=== PATIENT | female | born 1985 | race Caucasian/White ===

== ENCOUNTER 2019-07-26 12:39 | Emergency (ER) | payer MEDICARE, MEDICAID ==
[~2019-07-26] VITALS: Ht 157.5 cm; Wt 52.0 kg
[~2019-07-26 12:39] MED LIST: SYN0.025T PO
[2019-07-26 13:14] VITALS: BP 134/94
[2019-07-26] MEDS ORDERED: IBUP-1984 PO (14:39)
[2019-07-26] MEDS ORDERED: PENI500T2 PO (14:39)
== END 2019-07-26 14:50 | disposition home or self-care (01) ==
LOC: ER 12:39
DX: K04.7 Periapical abscess without sinus (principal); K02.9 Dental caries, unspecified; F17.200 Nicotine dependence, unspecified, uncomplicated; F12.90 Cannabis use, unspecified, uncomplicated; F15.90 Other stimulant use, unspecified, uncomplicated; Z79.899 Other long term (current) drug therapy
CPT/HCPCS: 99283

== ENCOUNTER 2019-08-25 10:21 | Emergency (ER) | payer MEDICARE, MEDICAID ==
[~2019-08-25] VITALS: Ht 157.5 cm; Wt 53.0 kg
[2019-08-25 10:24] VITALS: BP 135/87
--- NOTE | 2019-08-25 11:04 | NUR ---
pt moved to fast track bed
[2019-08-25] MEDS ORDERED: penicillin V potassium 500mg tablet PO ONE (11:50)
[2019-08-25] MEDS ORDERED: HYDROcodone/acetaminophen 10/325mg tab PO ONE (11:50)
[2019-08-25] MEDS ORDERED: IBUP-1985 PO (12:15)
[2019-08-25] MEDS ORDERED: PENI500T2 PO (12:15)
== END 2019-08-25 12:22 | disposition home or self-care (01) ==
LOC: ER 10:22
DX: K04.7 Periapical abscess without sinus (principal); F12.90 Cannabis use, unspecified, uncomplicated; F15.90 Other stimulant use, unspecified, uncomplicated; Z79.899 Other long term (current) drug therapy
CPT/HCPCS: 99283

== ENCOUNTER 2019-10-28 06:43 | Emergency (ER) | payer MEDICARE, MEDICAID ==
[~2019-10-28] VITALS: Ht 157.5 cm; Wt 54.0 kg
[~2019-10-28 06:43] MED LIST changes: +IBUP-1985 PO
[2019-10-28 07:24] VITALS: BP 150/101
[2019-10-28] MEDS ORDERED: ketorolac trometh. 30mg/ml inj. IM ONE (07:35)
[2019-10-28] MEDS ORDERED: HYDROcodone/acetaminophen 10/325mg tab PO ONE (07:50)
--- NOTE | 2019-10-28 08:15 | NUR ---
AT 0815 STATUS SHOWS TX AND DC BUT PROVIDER ADVISES NOT TO DC PT YET.
== END 2019-10-28 09:25 | disposition home or self-care (01) ==
LOC: ER 06:43
DX: M25.512 Pain in left shoulder (principal); F12.90 Cannabis use, unspecified, uncomplicated; F15.90 Other stimulant use, unspecified, uncomplicated; Z79.899 Other long term (current) drug therapy
CPT/HCPCS: 29105; 71045; 73030; 96372; 99284; J1885

== ENCOUNTER 2021-03-15 14:02 | Emergency (ER) | payer MEDICARE, MEDICAID ==
[~2021-03-15] VITALS: Ht 157.5 cm; Wt 58.8 kg
[2021-03-15 15:06] LABS: CLARITY,URINE SLIGHTLY CLOUDY (Clear); COLOR,URINE YELLOW (Yellow); GLUCOSE, URINE NEGATIVE (Neg); KETONES,URINE NEGATIVE (Neg); LEUKOCYTE ESTERASE ,URINE NEGATIVE (Neg); NITRITES, URINE POSITIVE (Neg); OCCULT BLOOD,URINE NEGATIVE (Neg); PROTEIN,URINE NEGATIVE (Neg); UROBILINOGEN,URINE 0.2 E.U/dL (0.2-1.0)
[2021-03-15 15:09] LABS: URINE HCG POSITIVE (NEG)
[2021-03-15 15:15] LABS: UA COLLECTION TYPE CLN CATCH MIDSTREAM
[2021-03-15 15:16] LABS: BACTERIA,URINE 3+ /HPF (Neg); MUCUS STRANDS MODERATE /LPF (Neg); RBC,URINE NONE SEEN /HPF (0-2); SQUAMOUS EPITHELIAL CELL,UR MANY /LPF (FEW); WBC,URINE 0-4 /HPF (0-4)
[2021-03-15 15:59] VITALS: BP 130/74
--- NOTE | 2021-03-15 15:59 | NUR ---
awaiting ed MD.
--- NOTE | 2021-03-15 15:59 | NUR ---
patient received in room 2.call light within reach,fiance at bedside.
--- NOTE | 2021-03-15 16:10 | NUR ---
Dr. freeman at bedside for ultrasound.
[2021-03-15] MEDS ORDERED: CEPH-585 PO (16:28)
== END 2021-03-15 16:34 | disposition home or self-care (01) ==
LOC: ER 14:02
DX: O26.891 Other specified pregnancy related conditions, first trimester (principal); R10.31 Right lower quadrant pain; R82.71 Bacteriuria; O99.321 Drug use complicating pregnancy, first trimester; F12.90 Cannabis use, unspecified, uncomplicated; F15.90 Other stimulant use, unspecified, uncomplicated; Z90.49 Acquired absence of other specified parts of digestive tract; Z3A.13 13 weeks gestation of pregnancy; Z79.2 Long term (current) use of antibiotics; Z79.899 Other long term (current) drug therapy
CPT/HCPCS: 76815; 81001; 81025; 99284

== ENCOUNTER 2021-04-28 20:37 | Emergency (ER) | payer BC, MEDICAID, MEDICARE ==
[~2021-04-28] VITALS: Ht 157.5 cm; Wt 65.0 kg
[~2021-04-28 20:37] MED LIST changes: +CEPH-585 PO
[2021-04-28 23:02] VITALS: BP 111/74
== END 2021-04-28 23:03 | disposition home or self-care (01) ==
LOC: ER 20:38
DX: O26.892 Other specified pregnancy related conditions, second trimester (principal); M94.0 Chondrocostal junction syndrome [Tietze]; R12 Heartburn; F12.90 Cannabis use, unspecified, uncomplicated; F15.90 Other stimulant use, unspecified, uncomplicated; Z79.2 Long term (current) use of antibiotics; Z79.899 Other long term (current) drug therapy; Z3A.20 20 weeks gestation of pregnancy
CPT/HCPCS: 71046; 93005; 99283

== ENCOUNTER 2024-06-05 00:58 | Emergency (ER) | payer BC, MEDICAID ==
[~2024-06-05] VITALS: Ht 157.5 cm; Wt 52.3 kg
[~2024-06-05 00:58] MED LIST changes: -CEPH-585 PO
[2024-06-05 01:06] VITALS: TEMP 98.9
[2024-06-05 03:10] VITALS: BP 141/95; PULSE 107; RESP 16; O2SAT 99
== END 2024-06-05 03:15 | disposition home or self-care (01) ==
LOC: ER 00:59
DX: S70.12XA Contusion of left thigh, initial encounter (principal); S00.412A Abrasion of left ear, initial encounter; M54.2 Cervicalgia; R51.9 Headache, unspecified; M79.601 Pain in right arm; F12.90 Cannabis use, unspecified, uncomplicated; F15.90 Other stimulant use, unspecified, uncomplicated; Z79.1 Long term (current) use of non-steroidal anti-inflammatories (NSAID); Z79.899 Other long term (current) drug therapy; Y08.89XA Assault by other specified means, initial encounter; Y93.89 Activity, other specified; Y92.89 Other specified places as the place of occurrence of the external cause; Y99.8 Other external cause status
CPT/HCPCS: 70450; 72125; 99284; A6449